=== PATIENT | female | born 1960 | race Hispanic/Latino ===

== ENCOUNTER 2017-12-01 07:54 | Day surgery (SDC) | payer BC ==
[2017-11-29 14:31] VITALS: BP 118/66
[2017-11-29 14:40] LABS: APPEARANCE,URINE Clear (CLEAR); BILIRUBIN,URINE Negative (NEGATIVE); COLOR,URINE Yellow (YELLOW); GLUCOSE, URINE (UA) Negative (NEGATIVE); KETONES,URINE Negative (NEGATIVE); LEUKOCYTE ESTERASE ,URINE Moderate (NEGATIVE); NITRATE,URINE Negative (NEGATIVE); OCCULT BLOOD,URINE Negative (NEGATIVE); PH,URINE 5.5 (5.0-8.0); PROTEIN,URINE Negative (NEGATIVE); UROBILINOGEN,URINE 0.2 mg/dL (0.2-1.0)
[2017-11-29 14:50] LABS: BASOPHILS % (AUTO) 0.7 % (0.0-5.0); EOSINOPHILS % (AUTO) 4.1 % (0.0-8.0); HEMATOCRIT 42.2 % (36-48); LYMPHOCYTES % (AUTO) 28.2 % (21.0-51.0); MEAN CORPUSCULAR HEMOGLOBIN 28.9 pg (27.0-33.0); MEAN CORPUSCULAR HGB CONC 33.5 g/dL (32.0-36.0); MEAN CORPUSCULAR VOLUME 86.4 fL (79-99); MONOCYTES % (AUTO) 6.7 % (3.0-13.0); NEUTROPHILS % (AUTO) 60.3 % (40.0-77.0); PLATELET COUNT (AUTO) 276 K/uL (130-400); RED BLOOD CELL COUNT(AUTO) 4.89 MIL/uL (4.00-5.50); RED CELL DISTRIBUTION WIDTH 13.3 % (11.0-15.5)
[2017-11-29 14:54] LABS: BILIRUBIN,DIRECT 0.1 mg/dL (0.0-0.3); BILIRUBIN,TOTAL 0.3 mg/dL (0.2-1.0); TOTAL PROTEIN, SERUM 7.8 g/dL (6.0-8.3)
[2017-11-29 15:04] LABS: RBC,URINE 0-1 /HPF (0-1)
[2017-11-29 15:05] LABS: BACTERIA,URINE Few /HPF (None Seen); MUCUS,URINE Rare LPF (None Seen); SQUAMOUS EPITHELIAL CELL,UR Few /HPF (0-2)
[~2017-12-01] VITALS: Ht 152.4 cm; Wt 79.5 kg
[2017-12-01] VITALS (17 sets, daily range): BP systolic 88–120; BP diastolic 55–69
[~2017-12-01 07:54] MED LIST: LACTATED RINGERS 1000ML 1,000 ML IV SCH
[2017-12-01] MEDS ORDERED: MIDAZOLAM HCL 1 MG/ML 2ML VIAL ONE ×2 (10:38→11:02)
[2017-12-01] MEDS ORDERED: ONDANSETRON HCL 4 MG/2 ML VIAL ONE ×2 (11:02→12:56)
[2017-12-01] MEDS ORDERED: LIDOCAINE PF 2% 5ML ABBOJECT ONE (11:02)
[2017-12-01] MEDS ORDERED: PROPOFOL 10 MG/ML 20ML VIAL IV ONE (11:02)
[2017-12-01] MEDS ORDERED: DEXAMETHASONE SOD PHOSPHATE 10MG/ML 1ML VIAL ONE (11:02)
[2017-12-01] MEDS ORDERED: NEOSTIGMINE 5MG/5ML SYR IV ONE (11:02)
[2017-12-01] MEDS ORDERED: ROCURONIUM 10MG/1ML SYR 10 MG/ML ML ONE (11:03)
[2017-12-01] MEDS ORDERED: FENTANYL CITRATE PF 50 MCG/1 ML 2ML VIAL ONE (11:03)
[2017-12-01] MEDS ORDERED: HEPARIN SODIUM 1000UNIT/ML 10ML VIAL ONE (11:08)
[2017-12-01] MEDS ORDERED: GLYCOPYRROLATE 1 MG/5 ML SYRINGE ONE (11:09)
[2017-12-01] MEDS ORDERED: MEPERIDINE-PF 25 MG/ML SYG ONE ×2 (12:56→13:15)
[2017-12-01] MEDS ORDERED: METOCLOPRAMIDE 10 MG/2 ML VIAL ONE (12:56)
[2017-12-01] MEDS ORDERED: PROMETHAZINE HCL 25 MG/ML 1ML AMPULE IM ONE (13:15)
[2017-12-01] MEDS ORDERED: EPHEDRINE SULFATE 50 MG/ML AMPULE ONE (14:23)
== END 2017-12-01 15:00 | disposition home or self-care (01) ==
LOC: DAH 07:54
PROVIDERS: ATTEND Surgery
DX: K80.10 Calculus of gallbladder with chronic cholecystitis without obstruction (principal); E66.9 Obesity, unspecified; F41.9 Anxiety disorder, unspecified; Z68.35 Body mass index [BMI] 35.0-35.9, adult; Z98.51 Tubal ligation status; Z98.890 Other specified postprocedural states; Z82.49 Family history of ischemic heart disease and other diseases of the circulatory system
CPT/HCPCS: 36415; 47562; 80076; 81001; 85025; 88304; A4450; A4600; A4930; C1769 ×4; J1100; J1644; J2001; J2175 ×2; J2250 ×2; J2405 ×2; J2550; J2704; J2710; J2765; J3010; J3490 ×2; J7030; J7120

== ENCOUNTER → 2020-04-24 | Outpatient (CLI) | payer OTHER | END | disposition home or self-care (01) | LOC: OIH 13:07 | PROVIDERS: ATTEND Internal Medicine | DX: M47.22 Other spondylosis with radiculopathy, cervical region (principal); M48.02 Spinal stenosis, cervical region; M25.78 Osteophyte, vertebrae | CPT/HCPCS: 72040 ==

== ENCOUNTER → 2021-04-30 | Outpatient (CLI) | payer OTHER | END | disposition home or self-care (01) | LOC: RAH 10:23 | PROVIDERS: ATTEND Internal Medicine | DX: R07.89 Other chest pain (principal) | CPT/HCPCS: 71046 ==

== ENCOUNTER 2023-01-18 12:56 | Emergency (ER) | payer BC, OTHER ==
[2023-01-18 13:48] LABS: BASOPHILS # (AUTO) 0.07 K/uL (0.00-0.20); BASOPHILS % (AUTO) 0.5 % (0.0-5.0); EOSINOPHILS # (AUTO) 0.08 K/uL (0.00-0.70); EOSINOPHILS % (AUTO) 0.6 % (0.0-8.0); HEMATOCRIT 45.4 % (36-48); IMMATURE GRANULOCYTE ABSOLUTE 0.11 K/uL (0-1); LYMPHOCYTES # (AUTO) 1.4 K/uL (1.0-4.8); LYMPHOCYTES % (AUTO) 10.1 % (21.0-51.0); MEAN CORPUSCULAR HEMOGLOBIN 28.8 pg (27.0-33.0); MEAN CORPUSCULAR HGB CONC 32.6 g/dL (32.0-36.0); MEAN CORPUSCULAR VOLUME 88.5 fL (79-99); MONOCYTES # (AUTO) 0.6 K/uL (0.1-1.0); MONOCYTES % (AUTO) 4.1 % (3.0-13.0); NEUTROPHILS # (AUTO) 11.2 K/uL (1.8-7.7); NEUTROPHILS % (AUTO) 83.9 % (40.0-77.0); PLATELET COUNT (AUTO) 315 K/uL (130-400); RED BLOOD CELL COUNT(AUTO) 5.13 MIL/uL (4.00-5.50); WHITE BLOOD COUNT (AUTO) 13.3 K/uL (4.8-10.8)
[2023-01-18 13:55] LABS: CREATININE 0.8 mg/dL (0.5-1.5); POTASSIUM 4.1 mmol/L (3.5-5.1)
[2023-01-18 13:57] LABS: ALBUMIN 3.8 g/dL (3.5-5.0); BILIRUBIN,TOTAL 0.3 mg/dL (0.2-1.0); TOTAL PROTEIN, SERUM 7.9 g/dL (6.0-8.3)
[2023-01-18 14:02] VITALS: BP 142/66; PULSE 72; RESP 18; O2SAT 98
[2023-01-18] MEDS ORDERED: 0.9%NACL 1000ML 1,000 ML IV ONE (16:00)
[2023-01-18] MEDS ORDERED: PROCHLORPERAZINE 10MG/2ML INJ IV ONE (16:00)
[2023-01-18] MEDS ORDERED: FAMOTIDINE 20MG VIAL IV ONE (16:00)
[2023-01-18] MEDS ORDERED: FAMO-136 PO (16:27)
[2023-01-18] MEDS ORDERED: ONDA22I IM (16:27)
== END 2023-01-18 17:00 | disposition home or self-care (01) ==
LOC: EDH 12:56
DX: K52.9 Noninfective gastroenteritis and colitis, unspecified (principal); E86.0 Dehydration
CPT/HCPCS: 99285; 74176; 96374; 76700; 96361; 96375; 84484; 80053; 83690; 85025; 36415; J3490; J7030; J0780